=== PATIENT | female | born 1985 | race American Indian/Alaskan Native ===

== ENCOUNTER 2021-09-13 20:09 | Emergency (ER) | payer SELFPAY ==
[2021-09-13] MEDS ORDERED: SODIUM CHLORIDE 0.9% 1000 ML 1,000 ML IV ONE (20:29)
[2021-09-13] MEDS ORDERED: MORPHINE 4 MG/1 ML INJ IV ONE (20:29)
[2021-09-13] MEDS ORDERED: ONDANSETRON 4 MG/2 ML INJ IV ONE (20:29)
--- NOTE | 2021-09-13 20:32 | Emergency Department Report ---
ED General Adult HPI - General Chief complaint: Dizziness Stated complaint: FAINTING Time Seen by Provider: 09/13/21 20:23 Source: patient, EMS Mode of arrival: Stretcher Limitations: No Limitations - History of Present Illness Initial comments: Patient is 36 years old female with history of DVT on Xarelto however patient stated that she ran out of her medication yesterday. Patient also had history of anemia. Patient presented to the ER via EMS complaining of right leg pain and swelling since yesterday and also complaining of fainting. She denies any fever or chills. No chest pain or shortness of breath. - Related Data Previous Rx's Medication Instructions Recorded Last Taken Type Docusate Sodium [Colace] 100 mg PO BID PRN #60 capsule 09/13/21 Unknown Rx Ferrous Sulfate [Ferrous Sulfate 324 mg PO BID #60 09/13/21 Unknown Rx 324 MG] Rivaroxaban [Xarelto] 15 mg PO QDAY #30 tablet 09/13/21 Unknown Rx Allergies Allergy/AdvReac Type Severity Reaction Status Date / Time No Known Allergies Allergy Verified 09/13/21 20:17 ED Review of Systems ROS: Stated complaint: FAINTING Other details as noted in HPI Comment: All other systems reviewed and negative Constitutional: denies: chills, fever Respiratory: denies: cough, shortness of breath, SOB with exertion, SOB at rest Cardiovascular: palpitations. denies: chest pain Gastrointestinal: denies: abdominal pain, nausea, vomiting, diarrhea, constipation, hematemesis, hematochezia Musculoskeletal: denies: back pain Neurological: denies: headache, weakness, numbness, paresthesias, confusion, abnormal gait ED Past Medical Hx - Medications Home Medications: Home Medications Medication Instructions Recorded Confirmed Last Taken Type Docusate Sodium [Colace] 100 mg PO BID PRN #60 capsule 09/13/21 Unknown Rx Ferrous Sulfate [Ferrous Sulfate 324 mg PO BID #60 09/13/21 Unknown Rx 324 MG] Rivaroxaban [Xarelto] 15 mg PO QDAY #30 tablet 09/13/21 Unknown Rx ED Physical Exam - General Limitations: No Limitations General appearance: alert, in no apparent distress - Head Head exam: Present: atraumatic, normocephalic, normal inspection - Eye Eye exam: Present: normal appearance - ENT ENT exam: Present: normal exam, normal orophraynx, mucous membranes moist - Neck Neck exam: Present: normal inspection, full ROM. Absent: tenderness, meni ngismus - Respiratory Respiratory exam: Present: normal lung sounds bilaterally - Cardiovascular Cardiovascular Exam: Present: tachycardia - GI/Abdominal GI/Abdominal exam: Present: soft, normal bowel sounds. Absent: distended, tenderness, guarding, rebound, rigid, organomegaly, mass, bruit, pulsatile mass, hernia - Extremities Exam Extremities exam: Present: normal inspection, full ROM, normal capillary refill. Absent: tenderness, pedal edema, joint swelling, calf tenderness - Back Exam Back exam: Present: normal inspection, full ROM. Absent: CVA tenderness (R), CVA tenderness (L) - Neurological Exam Neurological exam: Present: alert, oriented X3, CN II-XII intact. Absent: motor sensory deficit - Psychiatric Psychiatric exam: Present: normal mood - Skin Skin exam: Present: warm, intact, normal color ED Course Vital Signs 09/13/21 20:10 Temperature 97.7 F Pulse Rate 125 H Respiratory 20 Rate Blood Pressure 135/81 [Left] O2 Sat by Pulse 100 Oximetry ED Medical Decision Making - Lab Data Result diagrams: 09/13/21 20:46 09/13/21 20:46 - EKG Data -: EKG Interpreted by Sc EKG shows normal: sinus rhythm Rate: tachycardia - Radiology Data Radiology results: report reviewed - Medical Decision Making Patient is 36 years old female with history of DVT on Xarelto however patient st ated that she ran out of her medication yesterday. Patient also had history of anemia. Patient presented to the ER via EMS complaining of right leg pain and swelling since yesterday and also complaining of fainting. She denies any fever or chills. No chest pain or shortness of breath. Patient found to be anemic with a hemoglobin of 6.1. Patient received 1 units of PRBC. D-dimer elevated however bilateral lower extremity ultrasound is negative for DVT. CTA is negative for PE or any other pathologies. Patient given prescription for Xarelto and I also started patient on ferrous sulfate and strongly advised patient to follow-up with his primary care physician in the next 2 to 3 days and to return to the ER if he develop any new symptoms. Critical care attestation.: If time is entered above; I have spent that time in minutes in the direct care of this critically ill patient, excluding procedure time. ED Disposition Clinical Impression: Acute anemia, Swelling of right lower extremity Disposition: HOME / SELF CARE / HOMELESS Is pt being admited?: No Condition: Stable Instructions: Preventing Iron Deficiency Anemia, Adult, Blood Transfusion, Adult, Care After, [id number] Prescriptions: Docusate Sodium [Colace] 100 mg PO BID PRN #60 capsule PRN Reason: Constipation Ferrous Sulfate [Ferrous Sulfate 324 MG] 324 mg PO BID #60 Rivaroxaban [Xarelto] 15 mg PO QDAY #30 tablet Referrals: [facility] [Provider Group] - 3-5 Days [facility] [Provider Group] - 3-5 Days
[2021-09-13 21:03] LABS: Basophils % (Auto) 0.1 % (0.0-1.8); Eosinophils % (Auto) 0.1 % (0.0-4.3); Hematocrit 20.1 % (30.3-42.9); Hemoglobin 6.1 gm/dl (10.1-14.3); Lymphocytes % (Auto) 7.1 % (13.4-35.0); Mean Corpuscular HGB Conc 30 % (30-34); Mean Corpuscular Volume 72 fl (79-97); Monocytes % (Auto) 14.6 % (0.0-7.3); Platelet Count 221 K/mm3 (140-440); Red Blood Count 2.81 M/mm3 (3.65-5.03)
[2021-09-13 21:13] LABS: INR 1.2 (0.87-1.13)
[2021-09-13 21:24] LABS: BUN/Creatinine Ratio 9; Blood Urea Nitrogen 8 mg/dL (7-17); Calcium 8.5 mg/dL (8.4-10.2); Hemolysis Index 0
[2021-09-13] MEDS ORDERED: SODIUM CHLORIDE 0.9% 500 ML 500 ML IV ONE (21:25)
--- NOTE | 2021-09-13 21:43 | Vascular Lab Report ---
DUPLEX DOPPLER LOWER EXTREMITY VEINS, BILATERAL INDICATION / CLINICAL INFORMATION: Bilateral leg pain and swelling, history of DVT. TECHNIQUE: Duplex doppler imaging was performed through the veins of both lower extremities using venous juan francoise and other maneuvers. COMPARISON: None available. FINDINGS: RIGHT COMMON FEMORAL VEIN: Negative. RIGHT FEMORAL VEIN: Negative. RIGHT POPLITEAL VEIN: Negative. RIGHT CALF VEINS: Negative. LEFT COMMON FEMORAL VEIN: Negative. LEFT FEMORAL VEIN: Negative. LEFT POPLITEAL VEIN: Negative. LEFT CALF VEINS: Negative. ADDITIONAL FINDINGS: None. IMPRESSION: 1. No sonographic evidence for DVT in either lower extremity. Signer Name: Fam Hennessy MD Signed: 09/13/2021 9:39 PM Workstation Name: [id number]
--- NOTE | 2021-09-13 22:48 | Cat Scan Report ---
CTA CHEST WITH CONTRAST INDICATION / CLINICAL INFORMATION: SYNCOPE,H/O DVT. TECHNIQUE: Axial CT images were obtained through the chest after injection of 100 cc Omnipaque 350 IV contrast. 3 plane MIP and/or 3D reconstructions were produced. All CT scans at this location are per formed using CT dose reduction for ALARA by means of automated exposure control. COMPARISON: None available. FINDINGS: VASCULAR FINDINGS: PULMONARY ARTERY: Pulmonary artery demonstrates suboptimal opacification. Segmental and subsegmental branches also not well opacified. No obvious filling defects involving central or lobar pulmonary art eries. Smaller branch vessels cannot be evaluated.. THORACIC AORTA: No significant abnormality. CORONARY ARTERY CALCIFICATION: Absent -- None. NONVASCULAR FINDINGS: LOWER NECK:Soft tissues of the lower neck and thyroid demonstrate no significant abnormalities or acu te findings. HEART: No significant abnormality. MEDIASTINUM / MIKY: No significant abnormality. ESOPHAGUS: No significant abnormality. LYMPH NODES: Borderline axillary lymph nodes. LUNGS: No acute air space or interstitial disease. PLEURA: No pleural effusion. No pneumothorax. THORACIC SOFT TISSUES: No significant abnormality of the chest wall or upper thoracic musculature. BONES: No significant skeletal abnormalities. ADDITIONAL CHEST FINDINGS: None. UPPER ABDOMEN: Numerous gallstones. IMPRESSION: 1. Suboptimal evaluation of smaller branch vessels secondary to incomplete opacification. No central or lobar pulmonary artery embolus. 2. Otherwise, no acute findings within the chest. 3. Cholelithiasis. Signer Name: Sarkis Hernandes II, MD Signed: 09/13/2021 10:44 PM Workstation Name: [id number]
[2021-09-13 23:43] LABS: Bilirubin,Urine NEG (Negative); Blood,Urine MOD (Negative); Color,Urine Amber (Yellow); Hyaline Casts,Urine 4 /LPF; Mucus,Urine FEW /HPF
[2021-09-14] MEDS ORDERED: ONDANSETRON 4 MG/2 ML INJ IV ONE ×2 (03:31→23:39)
[2021-09-14] MEDS ORDERED: fentaNYL 100 MCG/2 ML INJ IV ONE (04:31)
[2021-09-14] MEDS ORDERED: IBUPROFEN 800 MG TAB PO ONE (08:36)
--- NOTE | 2021-09-14 13:14 | Event Note ---
I spoke with patient. She states that she has uterus pain. I ordered ibuprofen. I suspect uterine fibroid versus dysmetria. She appears comfortabl. No peritoneal signs on abdominal exam. Patient will be signed out to my colleague. Currently awaiting transfusion of packed red blood cells.
--- NOTE | 2021-09-14 13:43 | Electrocardiograph Report ---
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
[2021-09-14] MEDS ORDERED: MORPHINE 4 MG/1 ML INJ IV ONE (23:39)
[2021-09-15] MEDS ORDERED: SODIUM CHLORIDE 0.9% 500 ML 500 ML ONE (00:50)
[2021-09-15] MEDS ORDERED: MORPHINE 2 MG/1 ML INJ IV ONE (03:00)
[2021-09-15 05:13] VITALS: BP 126/81
== END 2021-09-15 07:20 | disposition home or self-care (01) ==
LOC: ED 20:09
DX: R22.41 Localized swelling, mass and lump, right lower limb (principal); D64.9 Anemia, unspecified; Z79.899 Other long term (current) drug therapy
CPT/HCPCS: 36415; 36430; 71275; 80048; 81001; 84484; 84703; 85025; 85379; 85610; 86850; 86870; 86900; 86901; 86920; 93005; 93970; 96361; 96374; 96375; 96376; 99285; J2270; J2405; J3010; J7030; J7040; P9016; Q9967; Q0162